=== PATIENT | female | born 1935 | race Caucasian/White ===

== ENCOUNTER 2018-02-11 09:45 | Emergency (ER) | payer MEDICARE, OTHER ==
[~2018-02-11] VITALS: Ht 162.6 cm; Wt 59.0 kg
[~2018-02-11 09:45] MED LIST: ACETAMINOPHEN-1 EAC1 ORAL; AMLODIPINE BESYL5 MG ORAL; ASPIRIN81 M3 PO; ATORVASTATIN CA40 MG ORAL; CRESTOR10 M1 ORAL; DIOVAN80 MG ORAL; FOLIC ACID1 MG ORAL; FOSAMAX70 MG ORAL; LISINOPRIL20 MG ORAL; LISINOPRIL40 MG ORAL; LORAZEPAM1 MG ORAL; METOPROLOL SUCC25 MG ORAL; METOPROLOL TART25 MG ORAL; MIRTAZAPINE15 M3 ORAL; MULTIVITAMINS1 EA14 PO; OMEPRAZOLE40 M1 ORAL; OYSTER SHELL 51 EAC1 PO; PHARBETOL500 MG; RISPERDAL0.5 MG ORAL; THIAMINE HCL100 MG ORAL; VICODIN 5-5001 EACH PO; ZOLOFT25 MG ORAL; ZOLPIDEM TARTRAT5 MG ORAL; ZYPREXA2.5 MG ORAL
[2018-02-11 09:50] VITALS: BP 147/65
--- NOTE | 2018-02-11 11:05 | Diagnostic Imaging Report ---
Indication: Left wrist pain Findings: 3 views of the left wrist were obtained. Bones are severely osteopenic. There is severe arthrosis at the base of the first metacarpal with osteophyte formation sclerosis and joint space narrowing. No acute fracture identified. There is no malalignment seen. There is a probable old fracture at the base of the fifth metacarpal. IMPRESSION: No acute injury. 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 Probable old fracture of the fifth metacarpal
--- NOTE | 2018-02-11 11:08 | Diagnostic Imaging Report ---
Indication: Pain Findings: 3 views of the left elbow and 2 view left forearm were obtained. There is a a compression plate and several screws reducing a fracture of the olecranon and proximal shaft of the ulna. No acute fracture is appreciated. There is no malalignment identified. There is severe arthrosis involving the elbow joint characterized by osteophyte formation, subchondral sclerosis. There is deformity of the radial head indicative of an old fracture. There is no joint effusion definitely identified. Bones are moderately osteopenic. IMPRESSION: No acute fracture appreciated. Old olecranon fracture, status post instrumented fixation/reduction. Old fracture of the radial head. 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
[2018-02-11] MEDS ORDERED: Bacitracin Oint UD TOPIC ONE ×2 (11:41→11:45)
--- NOTE | 2018-02-11 11:57 | Emergency Room Report ---
History of Present Illness General Chief Complaint: Upper Extremity Injury Source: Patient Present Illness HPI This patient states that while she was trying to use her cane she got the cane wedged next 2 the end table of her roommate and she subsequently lost her balance and fell onto the edge of the end table. She suffered a laceration of her left forearm. She denies head injury. She denies neck pain. She has no other complaints. Allergies: Coded Allergies: No Known Allergies (Verified , 02/21/06) Patient History Past Medical History: see triage record, [place], CAD, other - osteoporosis Pertinent Family History: other - Orthopedic: L. shoulder, Bilat hip., L. forearm Social History: Denies: smoking, alcohol use, drug use Reviewed Nursing Documentation: PMH: Agreed; PSxH: Agreed Nursing Documentation-PMH Past Medical History: No History, Except For Hx Cardiac Problems: Yes - [place] Hx Hypertension: No Hx Pacemaker: No Hx Asthma: No Hx COPD: No Hx Diabetes: No Hx Cancer: No Hx Gastrointestinal Problems: No Hx Dialysis: No History Of Psychiatric Problem: No Hx Neurological Problems: No - hip fracture, left arm fracture, osteoporosis Hx Cerebrovascular Accident: No Hx Seizures: No Review of Systems All Other Systems: negative except mentioned in HPI Physical Exam Vital Signs Date Time Temp Pulse Resp B/P (MAP) Pulse Ox O2 Delivery O2 Flow Rate FiO2 02/11/18 09:50 98.4 84 16 147/65 94 Room Air 98.4 Sp02 EP Interpretation: reviewed, normal General Appearance: no apparent distress, alert, GCS 15, non-toxic Head: normocephalic, atraumatic Eyes: bilateral eye normal inspection, bilateral eye PERRL ENT: hearing grossly normal, normal pharynx, no angioedema, normal voice Neck: full range of motion, supple/symm/no masses Respiratory: chest non-tender, lungs clear, normal breath sounds, no respiratory distress, no retraction, no accessory muscle use, speaking full sentences Cardiovascular #1: regular rate, rhythm, no edema Gastrointestinal: normal bowel sounds, non tender, soft, non-distended, no guarding, no rebound Rectal: deferred Musculoskeletal: back normal, normal range of motion, other - [id number] laceration with skin avulsion on the mid L. forearm. Neurologic: alert, oriented x3, responsive, motor strength/tone normal, sensory intact, speech normal Psychiatric: judgement/insight normal, memory normal, mood/affect normal, no suicidal/homicidal ideation Skin: warm/dry, well hydrated, other - See above in [facility]. Medical Decision Making Diagnostic Impression: Primary Impression: Skin avulsion Additional Impression: Laceration of forearm ER Course This patient has a clinical presentation consistent with a laceration/contusion and skin avulsion of the L. forearm. X-ray shows no fracture or abnormality. The patient was instructed on supportive care with ice. I did not identify an emergency medical condition. The patient was given return precautions and followup instructions. Other X-Ray Diagnostic Results Other X-Ray Diagnostic Results : X-Ray ordered: L. forearm, L. wrist, L. elbow # of Views/Limited Vs Complete: Complete Indication: Pain EP Interpretation: No Interpretation: no fractures Impression: Other Electronically Signed by: Ed Last Vital Signs Date Time Temp Pulse Resp B/P (MAP) Pulse Ox O2 Delivery O2 Flow Rate FiO2 02/11/18 09:50 98.4 84 16 147/65 94 Room Air 98.4 Disposition: HOME, SELF-CARE Condition: Improved Referrals: Molina Omer MD (PCP) Lizzy Menendez DO Feb 11, 2018 11:56
[2018-02-11 12:04] VITALS: BP 133/75
== END 2018-02-11 12:05 | disposition home or self-care (01) ==
LOC: EMR 10:05
DX: S51.812A Laceration without foreign body of left forearm, initial encounter (principal); M81.0 Age-related osteoporosis without current pathological fracture; I25.10 Atherosclerotic heart disease of native coronary artery without angina pectoris; I25.2 Old myocardial infarction; W17.89XA Other fall from one level to another, initial encounter
CPT/HCPCS: 99284